=== PATIENT | female | born 1955 | race African-American/Black ===

== ENCOUNTER 2024-04-29 13:54 | Inpatient (IN) | payer OTHER ==
[~2024-04-29] VITALS: Ht 162.6 cm; Wt 97.5 kg
[2024-04-29 14:38] LABS: BASOPHILS % 1.1 % (0.0-2.0); EOSINOPHILS % 1.6 % (0.0-5.0); HEMATOCRIT. 37.1 % (36.0-48.0); HEMOGLOBIN. 11.6 g/dL (12.0-16.0); LYMPHOCYTES % 24.2 % (20.0-50.0); MEAN CORPUSCULAR HEMOGLOBIN 26.4 pg (28.0-32.0); MEAN CORPUSCULAR HGB CONC 31.2 g/dL (31.0-37.0); MEAN CORPUSCULAR VOLUME 84.5 fL (81.0-99.0); MEAN PLATELET VOLUME 7.7 fl (7.4-10.4); MONOCYTES % 5.9 % (2.0-8.0); NEUTROPHILS % 67.2 % (40.0-76.0); PLATELET 353 x1000/uL (130-400); RED BLOOD CELL COUNT 4.39 mill/uL (4.2-5.4); RED CELL DISTRIBUTION WIDTH 15.9 % (11.6-14.6); WHITE BLOOD COUNT 9.2 x1000/uL (4.5-11.0)
[2024-04-29 14:43] LABS: CHLORIDE 110 mEq/L (98-107); POTASSIUM 4.2 mEq/L (3.5-5.1); SODIUM 140 mEq/L (136-145)
[2024-04-29 14:44] LABS: CALCIUM 9.8 mg/dL (8.7-10.4); CARBON DIOXIDE 26 mEq/L (21-32)
[2024-04-29 14:49] LABS: CREATININE 1.4 mg/dL (0.6-1.0); GLUCOSE 204 mg/dL (70-105); UREA NITROGEN BLOOD 20 mg/dL (9-23)
[2024-04-29 14:51] LABS: ALANINE AMINOTRANSFERASE 21 IU/L (10-49); ALBUMIN 3.9 g/dL (3.2-4.8); ASPARTATE AMINOTRANSFERASE 14 IU/L (<34); BILIRUBIN DIRECT 0.1 mg/dL (<=3.0); TROPONIN I HIGH SENSITIVITY 27 ng/L (3.0-34)
[2024-04-29 14:52] LABS: BILIRUBIN TOTAL 0.4 mg/dL (0.1-1.0); PROTEIN TOTAL 6.8 g/dL (6.0-8.3)
[2024-04-29 17:26] LABS: CLARITY URINE CLEAR (CLEAR); COLOR URINE YELLOW (YELLOW); GLUCOSE URINE 2+ (NEGATIVE); KETONES URINE NEGATIVE (NEGATIVE); LEUKOCYTE ESTERASE URINE TRACE (NEGATIVE); NITRITE URINE POSITIVE (NEGATIVE); OCCULT BLOOD URINE NEGATIVE (NEGATIVE); PROTEIN URINE NEGATIVE (NEGATIVE); SPECIFIC GRAVITY URINE 1.021 (1.005-1.030); UROBILINOGEN URINE 0.2 E.U./dL (0.2-1.0)
[2024-04-29 17:37] LABS: BACTERIA URINE 4+; RBC URINE 0-2 /hpf (0-2); SQUAMOUS EPITHELIAL CELL URINE 1+ /lpf (RARE/1+); YEAST URINE NONE SEEN
[2024-04-29] MEDS ORDERED: CEPH500C2 MT (18:11)
[2024-04-29] MEDS: CEPHALEXIN 250MG CAPSULE PO ONE (22:49)
[2024-04-30] VITALS: BP 117/66; PULSE 64; PULSE 69; RESP 18; RESP 20; TEMP 36.61404; TEMP 36.6404; O2SAT 100
[2024-04-30] MEDS ORDERED: ONDANSETRON HCL 4MG/2ML INJ IV PRN (02:00)
[2024-04-30] MEDS ORDERED: CLONIDINE 0.1MG TABLET PO PRN (02:00)
[2024-04-30] MEDS ORDERED: ACETAMINOPHEN 325MG TABLET PO PRN ×2 (02:00)
[2024-04-30] MEDS ORDERED: IPRATROPIUM/ALBUTEROL 0.5-3(2.5)MG/3ML NEB HHN PRN (02:00)
[2024-04-30] MEDS ORDERED: DEXTROSE 50% WATER 50ML SYRINGE IV PRN (02:00)
[2024-04-30] MEDS ORDERED: MAGNESIUM/ALUMINUM HYDROXIDE/SIMETHICONE 30ML UDC PO PRN (02:00)
[2024-04-30] MEDS ORDERED: DOCUSATE SODIUM 100MG CAPSULE PO PRN (02:00)
[2024-04-30] MEDS ORDERED: GUAIFENESIN 200MG/10ML SUGAR FREE UDC PO PRN (02:00)
[2024-04-30] MEDS: LORAZEPAM 0.5MG TABLET PO PRN (02:16)
[2024-04-30] MEDS: SODIUM CHLORIDE 0.9% 1,000 ML IV NR (02:17)
[2024-04-30] MEDS: CEFTRIAXONE 1GM/50ML 50 ML IV NR (03:13)
[2024-04-30 04:00] VITALS: BP 151/61; PULSE 66; RESP 18; TEMP 36.44736; O2SAT 99
[2024-04-30] MEDS: BLOOD SUGAR DIAGNOSTIC STRIP TEST SCH (06:29)
[2024-04-30 07:55] LABS: BASOPHILS % 0.5 % (0.0-2.0); EOSINOPHILS % 2.6 % (0.0-5.0); HEMATOCRIT. 34.4 % (36.0-48.0); HEMOGLOBIN. 10.8 g/dL (12.0-16.0); LYMPHOCYTES % 31.6 % (20.0-50.0); MEAN CORPUSCULAR HEMOGLOBIN 26.2 pg (28.0-32.0); MEAN CORPUSCULAR HGB CONC 31.3 g/dL (31.0-37.0); MEAN CORPUSCULAR VOLUME 83.8 fL (81.0-99.0); MONOCYTES % 7.9 % (2.0-8.0); NEUTROPHILS % 57.4 % (40.0-76.0); PLATELET 324 x1000/uL (130-400); RED CELL DISTRIBUTION WIDTH 15.9 % (11.6-14.6); WHITE BLOOD COUNT 7.6 x1000/uL (4.5-11.0)
[2024-04-30 08:00] VITALS: BP 151/56; PULSE 63; RESP 16; TEMP 36.78072; O2SAT 98
[2024-04-30 08:08] LABS: CARBON DIOXIDE 25 mEq/L (21-32); CHLORIDE 110 mEq/L (98-107); POTASSIUM 3.9 mEq/L (3.5-5.1); SODIUM 140 mEq/L (136-145)
[2024-04-30 08:09] LABS: CALCIUM 9.1 mg/dL (8.7-10.4)
[2024-04-30 08:13] LABS: CREATININE 1.3 mg/dL (0.6-1.0); GLUCOSE 268 mg/dL (70-105); IRON 38 ug/dL (50-170)
[2024-04-30 08:14] LABS: TRIGLYCERIDE 128 mg/dL (0-150); UREA NITROGEN BLOOD 19 mg/dL (9-23)
[2024-04-30 08:15] LABS: ALBUMIN 3.3 g/dL (3.2-4.8); LDL CHOLESTEROL 67 mg/dL (5-100)
[2024-04-30 08:16] LABS: CHOLESTEROL 123 mg/dL (<200); CREATINE KINASE 43 IU/L (34-145); HDL CHOLESTEROL 35 mg/dL (>65); TOTAL IRON BINDING CAPACITY 280 ug/dl (250-425)
[2024-04-30 08:17] LABS: T4 FREE 0.96 ng/dL (0.89-1.76)
[2024-04-30 08:25] LABS: PHOSPHORUS 2.8 mg/dL (2.5-4.9)
[2024-04-30 08:31] LABS: PROTHROMBIN TIME 11.4 sec (9.6-11.0)
[2024-04-30] MEDS: AMLODIPINE 5MG TABLET PO SCH (09:12)
[2024-04-30] MEDS: PANTOPRAZOLE 40MG DR TABLET PO SCH (09:12)
[2024-04-30] MEDS: INSULIN LISPRO 100 UNITS/ML SUBCUT SCH (09:16)
[2024-04-30 12:00] VITALS: BP 146/62; PULSE 65; RESP 18; TEMP 36.89184; O2SAT 98
[2024-04-30 13:39] VITALS: BP 146/62; PULSE 65; TEMP 98.4; O2SAT 98
[2024-04-30] MEDS ORDERED: PNEUMOCOCCAL 23-VAL P-SAC VAC 0.5ML IM ONE (15:00)
[2024-04-30] MEDS ORDERED: RIVAROXABAN 20 MG TABLET PO SCH (17:00)
[2024-04-30] MEDS ORDERED: ATORVASTATIN CALCIUM 40MG TABLET PO SCH (21:00)
== END 2024-04-30 17:41 | disposition short-term general hospital (02) | DRG 689 ==
LOC: ER 14:12 → 5WST 22:56 → 6WST 23:12
PROVIDERS: ADMIT Internal Medicine; ATTEND Internal Medicine
DX: N39.0 Urinary tract infection, site not specified (principal); N17.0 Acute kidney failure with tubular necrosis; I10 Essential (primary) hypertension; E11.9 Type 2 diabetes mellitus without complications; D64.9 Anemia, unspecified; E86.0 Dehydration; F03.90 Unspecified dementia, unspecified severity, without behavioral disturbance, psychotic disturbance, mood disturbance, and anxiety; Z86.711 Personal history of pulmonary embolism; Z86.73 Personal history of transient ischemic attack (TIA), and cerebral infarction without residual deficits; Z79.899 Other long term (current) drug therapy; Z81.8 Family history of other mental and behavioral disorders
CPT/HCPCS: 36415; 80048; 80061; 80076; 81003; 82040; 82550; 82962; 83036; 83540; 83550; 83735; 83880; 84100; 84439; 84443; 84484; 85025; 93005; 99285; J0696; J1815

== ENCOUNTER 2024-07-22 14:57 | Emergency (ER) | payer MEDICARE, OTHER ==
[~2024-07-22] VITALS: Ht 167.6 cm; Wt 105.0 kg
[~2024-07-22 14:57] MED LIST: CEPH500C2 MT
[2024-07-22 15:08] VITALS: O2SAT 100
[2024-07-22] MEDS: SODIUM CHLORIDE 0.9% 1,000 ML IV ONE ×2 (15:56→16:45)
[2024-07-22 16:02] LABS: BASOPHILS % 1.2 % (0.0-2.0); EOSINOPHILS % 2.3 % (0.0-5.0); HEMATOCRIT. 39.8 % (36.0-48.0); HEMOGLOBIN. 12.5 g/dL (12.0-16.0); LYMPHOCYTES % 26.2 % (20.0-50.0); MEAN CORPUSCULAR HEMOGLOBIN 26.6 pg (28.0-32.0); MEAN CORPUSCULAR HGB CONC 31.3 g/dL (31.0-37.0); MEAN CORPUSCULAR VOLUME 85.1 fL (81.0-99.0); MONOCYTES % 5.9 % (2.0-8.0); NEUTROPHILS % 64.4 % (40.0-76.0); PLATELET 350 x1000/uL (130-400); RED BLOOD CELL COUNT 4.68 mill/uL (4.2-5.4); RED CELL DISTRIBUTION WIDTH 17.6 % (11.6-14.6); WHITE BLOOD COUNT 8.6 x1000/uL (4.5-11.0)
[2024-07-22 16:11] LABS: CHLORIDE 112 mEq/L (98-107); POTASSIUM 5.3 mEq/L (3.5-5.1); SODIUM 141 mEq/L (136-145)
[2024-07-22 16:12] LABS: CARBON DIOXIDE 23 mEq/L (21-32)
[2024-07-22 16:13] LABS: CALCIUM 10.2 mg/dL (8.7-10.4)
[2024-07-22 16:17] LABS: CREATININE 1.5 mg/dL (0.6-1.0)
[2024-07-22 16:18] LABS: GLUCOSE 191 mg/dL (70-105); UREA NITROGEN BLOOD 26 mg/dL (9-23)
[2024-07-22 16:19] LABS: ALANINE AMINOTRANSFERASE 52 IU/L (10-49); ASPARTATE AMINOTRANSFERASE 38 IU/L (<34); TROPONIN I HIGH SENSITIVITY 16 ng/L (3.0-34)
[2024-07-22 16:20] LABS: ALBUMIN 3.9 g/dL (3.2-4.8); BILIRUBIN TOTAL 0.3 mg/dL (0.1-1.0); PROTEIN TOTAL 7.7 g/dL (6.0-8.3)
[2024-07-22 16:24] LABS: BILIRUBIN DIRECT < 0.1 mg/dL (<=3.0)
[2024-07-22 16:44] LABS: PROTHROMBIN TIME 11.6 sec (9.6-11.0)
[2024-07-22] MEDS: CALCIUM GLUCONATE 1GM PREMIX 50 ML IV ONE (16:45)
[2024-07-22] MEDS: DEXTROSE 50% WATER 50ML SYRINGE IV ONE (16:45)
[2024-07-22] MEDS ORDERED: INSULIN REGULAR (HUMULIN R) 1000UNITS/10ML VIAL IV ONE (16:45)
[2024-07-22 17:31] LABS: TROPONIN I HIGH SENSITIVITY 16 ng/L (3.0-34)
[2024-07-22 21:40] VITALS: BP 166/68; PULSE 66; RESP 15; TEMP 36.44736; O2SAT 100
[2024-07-23] MEDS ORDERED: PANTOPRAZOLE SODIUM 40 MG/VIAL IV SCH (09:00)
== END 2024-07-22 22:04 | disposition short-term general hospital (02) ==
LOC: ER 14:57
DX: K92.2 Gastrointestinal hemorrhage, unspecified (principal); E87.5 Hyperkalemia; E11.9 Type 2 diabetes mellitus without complications; E78.5 Hyperlipidemia, unspecified; Z79.01 Long term (current) use of anticoagulants
CPT/HCPCS: 80076; 80048; 82270; 82962; 83690; 85025; 85610; 86850; 86900; 86901; 84484; 36415; 71045; 93005; 96361; 96365; 96375; 99285; J0610; J1815; J7030

== ENCOUNTER 2024-09-11 01:55 | Emergency (ER) | payer OTHER ==
[~2024-09-11] VITALS: Ht 160 cm; Wt 109.0 kg
[2024-09-11 01:58] VITALS: BP 146/96; PULSE 98; RESP 18; TEMP 98.4; O2SAT 98
[2024-09-11] MEDS ORDERED: IBUPROFEN 600MG TABLET PO ONE (02:30)
[2024-09-11] MEDS ORDERED: IBUP-2029 MT (04:53)
== END 2024-09-11 06:29 | disposition home or self-care (01) ==
LOC: ER 01:55
DX: S83.91XA Sprain of unspecified site of right knee, initial encounter (principal); S83.92XA Sprain of unspecified site of left knee, initial encounter; M54.50 Low back pain, unspecified; M17.12 Unilateral primary osteoarthritis, left knee; E11.9 Type 2 diabetes mellitus without complications; I10 Essential (primary) hypertension; Z96.651 Presence of right artificial knee joint; X58.XXXA Exposure to other specified factors, initial encounter; Y93.89 Activity, other specified; Y92.89 Other specified places as the place of occurrence of the external cause; Y99.8 Other external cause status
CPT/HCPCS: 72100; 73523; 73560; 99284

== ENCOUNTER 2024-10-23 01:55 | Emergency (ER) | payer OTHER ==
[~2024-10-23] VITALS: Ht 160 cm; Wt 98.8 kg
[~2024-10-23 01:55] MED LIST changes: +IBUP-2029 MT
[2024-10-23 02:00] VITALS: O2SAT 100
[2024-10-23 04:21] LABS: CLARITY URINE CLEAR (CLEAR); COLOR URINE YELLOW (YELLOW); GLUCOSE URINE TRACE (NEGATIVE); KETONES URINE NEGATIVE (NEGATIVE); LEUKOCYTE ESTERASE URINE NEGATIVE (NEGATIVE); NITRITE URINE POSITIVE (NEGATIVE); OCCULT BLOOD URINE NEGATIVE (NEGATIVE); PH URINE 5.5 (4.5-8.0); PROTEIN URINE NEGATIVE (NEGATIVE); SPECIFIC GRAVITY URINE 1.013 (1.005-1.030); UROBILINOGEN URINE 0.2 E.U./dL (0.2-1.0)
[2024-10-23 04:22] LABS: BASOPHILS % 0.8 % (0.0-2.0); EOSINOPHILS % 2.6 % (0.0-5.0); HEMATOCRIT. 36.5 % (36.0-48.0); HEMOGLOBIN. 11.6 g/dL (12.0-16.0); MEAN CORPUSCULAR HEMOGLOBIN 26.1 pg (28.0-32.0); MEAN CORPUSCULAR HGB CONC 31.8 g/dL (31.0-37.0); MEAN CORPUSCULAR VOLUME 82.1 fL (81.0-99.0); MEAN PLATELET VOLUME 8.4 fl (7.4-10.4); MONOCYTES % 8.8 % (2.0-8.0); NEUTROPHILS % 62.8 % (40.0-76.0); PLATELET 345 x1000/uL (130-400); RED BLOOD CELL COUNT 4.44 mill/uL (4.2-5.4); RED CELL DISTRIBUTION WIDTH 16.3 % (11.6-14.6); WHITE BLOOD COUNT 10.4 x1000/uL (4.5-11.0)
[2024-10-23 04:28] LABS: *AMPHETAMINES SCREEN URINE NEGATIVE (NEGATIVE)
[2024-10-23 04:29] LABS: *BARBITURATES SCREEN URINE NEGATIVE (NEGATIVE); *BENZODIAZEPINES SCREEN URINE NEGATIVE (NEGATIVE); *COCAINE SCREEN URINE NEGATIVE (NEGATIVE); CANNABINOID URINE SCREEN NEGATIVE (NEGATIVE); ECSTASY MDMA SCREEN URINE NEGATIVE (NEGATIVE); METHADONE URINE SCREEN NEGATIVE (NEGATIVE); OPIATES URINE SCREEN NEGATIVE (NEGATIVE); PHENCYCLIDINE URINE SCREEN NEGATIVE (NEGATIVE)
[2024-10-23 04:40] LABS: CHLORIDE 108 mEq/L (98-107); POTASSIUM 4.7 mEq/L (3.5-5.1); SODIUM 142 mEq/L (136-145)
[2024-10-23 04:41] LABS: CALCIUM 9.9 mg/dL (8.7-10.4); CARBON DIOXIDE 28 mEq/L (21-32)
[2024-10-23 04:46] LABS: CREATININE 1.4 mg/dL (0.6-1.0); GLUCOSE 154 mg/dL (70-105); UREA NITROGEN BLOOD 27 mg/dL (9-23)
[2024-10-23 04:47] LABS: ACETAMINOPHEN < 2 ug/mL (10-30); RBC URINE 0-2 /hpf (0-2); SQUAMOUS EPITHELIAL CELL URINE FEW /lpf (RARE/1+)
[2024-10-23 04:48] LABS: BACTERIA URINE 2+
[2024-10-23 05:23] LABS: ETHANOL BLOOD < 10 mg/dL (<10)
[2024-10-23] MEDS: CEPHALEXIN 250MG/5ML ORAL SYRINGE PO SCH (06:14)
[2024-10-23] MEDS ORDERED: CEPH500T MT (08:51)
[2024-10-24 10:07] VITALS: BP 133/68; PULSE 71; RESP 16; TEMP 36.8; O2SAT 98
== END 2024-10-24 10:42 | disposition home or self-care (01) ==
LOC: ER 01:55
DX: R45.851 Suicidal ideations (principal); E11.9 Type 2 diabetes mellitus without complications; I10 Essential (primary) hypertension; Z79.899 Other long term (current) drug therapy; Z20.822 Contact with and (suspected) exposure to COVID-19
CPT/HCPCS: 36415; 80048; 80305; 80307; 80320; 80329; 81003; 85025; 87426; 99285; G0480